=== PATIENT | male | born 1985 | race Caucasian/White ===

== ENCOUNTER 2017-12-22 08:15 | Emergency (ER) | payer OTHER ==
[~2017-12-22] VITALS: Ht 167.6 cm; Wt 122.9 kg
[2017-12-22 08:32] VITALS: Ht 167.6 cm; Wt 122.9 kg
[2017-12-22 10:48] VITALS: BP 148/96
== END 2017-12-22 10:48 | disposition home or self-care (01) ==
LOC: ED 08:15
DX: J02.9 Acute pharyngitis, unspecified (principal); I10 Essential (primary) hypertension
CPT/HCPCS: 87804

== ENCOUNTER 2018-04-10 09:58 | Emergency (ER) | payer OTHER ==
[~2018-04-10] VITALS: Ht 167.6 cm; Wt 128.1 kg
[2018-04-10 10:06] VITALS: Ht 167.6 cm; Wt 128.1 kg
[2018-04-10 12:35] VITALS: BP 132/86
== END 2018-04-10 12:35 | disposition home or self-care (01) ==
LOC: ED 09:58
DX: M54.16 Radiculopathy, lumbar region (principal); I10 Essential (primary) hypertension; E66.01 Morbid (severe) obesity due to excess calories; X50.0XXA Overexertion from strenuous movement or load, initial encounter; Y93.89 Activity, other specified; Y92.89 Other specified places as the place of occurrence of the external cause; Y99.8 Other external cause status
CPT/HCPCS: J1100; J1885

== ENCOUNTER 2019-02-19 07:03 | Emergency (ER) | payer OTHER ==
[~2019-02-19] VITALS: Ht 167.6 cm; Wt 128.4 kg
[2019-02-19 07:06] VITALS: BP 136/95; Ht 167.6 cm; Wt 128.4 kg
== END 2019-02-19 08:20 | disposition home or self-care (01) ==
LOC: ED 07:03
DX: J02.9 Acute pharyngitis, unspecified (principal); I10 Essential (primary) hypertension
CPT/HCPCS: J1100; J1885; J7030

== ENCOUNTER 2019-11-08 09:04 | Emergency (ER) | payer OTHER ==
[~2019-11-08] VITALS: Ht 170.2 cm; Wt 129.3 kg
[2019-11-08 09:07] VITALS: Ht 170.2 cm; Wt 129.3 kg
[2019-11-08 10:39] VITALS: BP 148/94
== END 2019-11-08 10:39 | disposition home or self-care (01) ==
LOC: ED 09:04
DX: J11.1 Influenza due to unidentified influenza virus with other respiratory manifestations (principal); I10 Essential (primary) hypertension; R19.7 Diarrhea, unspecified
CPT/HCPCS: 87804; J1885

== ENCOUNTER 2020-05-31 06:48 | Emergency (ER) | payer OTHER, SELFPAY ==
[~2020-05-31] VITALS: Ht 167.6 cm; Wt 124.7 kg
[2020-05-31 06:51] VITALS: Ht 167.6 cm; Wt 124.7 kg
[2020-05-31 09:21] VITALS: BP 147/94
== END 2020-05-31 09:15 | disposition home or self-care (01) ==
LOC: ED 06:48
DX: J02.0 Streptococcal pharyngitis (principal); I10 Essential (primary) hypertension; F43.10 Post-traumatic stress disorder, unspecified; E66.01 Morbid (severe) obesity due to excess calories; Z68.41 Body mass index [BMI] 40.0-44.9, adult; Z20.828 Contact with and (suspected) exposure to other viral communicable diseases; X58.XXXA Exposure to other specified factors, initial encounter; Y93.89 Activity, other specified; Y92.89 Other specified places as the place of occurrence of the external cause; Y99.8 Other external cause status
CPT/HCPCS: U0003-CS

== ENCOUNTER 2020-07-17 13:17 | Emergency (ER) | payer OTHER ==
[~2020-07-17] VITALS: Ht 167.6 cm; Wt 129.3 kg
[2020-07-17 13:25] VITALS: Ht 167.6 cm; Wt 129.3 kg
[2020-07-17 15:36] LABS: BASOPHIL % 0.5 % (0-2); PLATELET COUNT 334 x10^3mcL (130-400); RED CELL DISTRIBUTION WIDTH 14.5 % (11.5-14.5)
[2020-07-17 15:41] LABS: CALCIUM 9.7 mg/dL (8.5-10.1); CARBON DIOXIDE 25.6 mmol/L (21-32); CHLORIDE SERUM 103 mmol/L (98-107); CREATININE SERUM 1.1 mg/dL (0.7-1.3); GFR1 > 60 mL/min; GLUCOSE SERUM 88 mg/dL (74-106); POTASSIUM SERUM 3.6 mmol/L (3.5-5.1); SODIUM SERUM 138 mmol/L (136-145)
[2020-07-17 15:45] LABS: ALBUMIN 3.8 g/dL (3.4-5.0); ALKALINE PHOSPHATASE 84 U/L (46-116); ALT/SGPT 37 U/L (16-63); AST/SGOT 21 U/L (15-37); BILIRUBIN TOTAL 0.4 mg/dL (0.20-1.00)
[2020-07-17 15:46] LABS: TOTAL PROTEIN, SERUM 8.5 g/dL (6.4-8.2)
[2020-07-17 16:45] VITALS: BP 128/86
== END 2020-07-17 17:00 | disposition home or self-care (01) ==
LOC: ED 13:17
PROVIDERS: Emergency Medicine
DX: R07.89 Other chest pain (principal); I10 Essential (primary) hypertension

== ENCOUNTER 2020-07-28 10:21 | Emergency (ER) | payer OTHER ==
[~2020-07-28] VITALS: Ht 167.6 cm; Wt 128.8 kg
[2020-07-28 10:29] VITALS: Ht 167.6 cm; Wt 128.8 kg
[2020-07-28 11:04] LABS: BASOPHIL % 0.3 % (0-2); PLATELET COUNT 322 x10^3mcL (130-400); RED CELL DISTRIBUTION WIDTH 14.3 % (11.5-14.5)
[2020-07-28 11:18] LABS: CALCIUM 9.2 mg/dL (8.5-10.1); CARBON DIOXIDE 26.9 mmol/L (21-32); CHLORIDE SERUM 104 mmol/L (98-107); CREATININE SERUM 1.1 mg/dL (0.7-1.3); GFR1 > 60 mL/min; GLUCOSE SERUM 135 mg/dL (74-106); POTASSIUM SERUM 3.6 mmol/L (3.5-5.1); SODIUM SERUM 140 mmol/L (136-145)
[2020-07-28 11:27] LABS: ALBUMIN 3.7 g/dL (3.4-5.0); ALKALINE PHOSPHATASE 80 U/L (46-116); ALT/SGPT 36 U/L (16-63); AST/SGOT 21 U/L (15-37); BILIRUBIN TOTAL 0.5 mg/dL (0.20-1.00); TOTAL PROTEIN, SERUM 8.2 g/dL (6.4-8.2)
[2020-07-28 12:19] LABS: AMPHETAMINE QUAL UR NONE DETECTED (See below)
[2020-07-28 14:47] VITALS: BP 130/87
== END 2020-07-28 14:47 | disposition home or self-care (01) ==
LOC: ED 10:21
PROVIDERS: Emergency Medicine
DX: R07.89 Other chest pain (principal); R06.02 Shortness of breath; I10 Essential (primary) hypertension
CPT/HCPCS: 83880; Q0092